=== PATIENT | male | born 1950 | race Caucasian/White ===

== ENCOUNTER → 2017-01-05 | Outpatient (CLI) | payer MEDICARE, OTHER ==
[2017-01-05 15:19] LABS: CHOLESTEROL 173 mg/dL (0-200); HDL CHOLESTEROL 47 mg/dL (29-75); LDL CHOLESTEROL 75 mg/dL (-130); LDL/HDL RATIO 2 RATIO (0-4); TRIGLYCERIDES 256 mg/dL (10-160)
[2017-01-07 16:50] LABS: HA AB IGM (HEPPAN) Nonreactive (()); HB CORE AB IGM (HEPPAN) Nonreactive (Nonreactive); HB S AG (HEPPAN) Nonreactive (Nonreactive); HEP C AB (HEPPAN) Nonreactive (Nonreactive); HEP C AB SIGNAL TO CUTOFF 0.08 ratio (<1.00); HEPATITIS B SURFACE ANTIBODY <5 mIU/mL (>=10)
== END | disposition home or self-care (01) ==
LOC: CLAB 13:14
PROVIDERS: Internal Medicine
DX: Z00.00 Encounter for general adult medical examination without abnormal findings (principal)
CPT/HCPCS: 36415; 80053; 80061; 80074; 83735; 84439; 84443; 86706; 87806

== ENCOUNTER → 2017-03-27 | Outpatient (CLI) | payer OTHER ==
[2017-03-27 12:39] LABS: THYROID STIMULATING HORMONE 5.48 uIU/ml (0.34-5.60)
[2017-03-27 12:45] LABS: FREE THYROXIN (T4) 0.69 ng/dL (0.58-1.64)
== END | disposition home or self-care (01) ==
LOC: CLAB 11:19
DX: I48.91 Unspecified atrial fibrillation (principal)
CPT/HCPCS: 36415; 84439; 84443